=== PATIENT | female | born 1955 | race Caucasian/White ===

== ENCOUNTER 2017-09-15 08:50 | Emergency (ER) | payer MEDICARE, BC ==
[2017-09-15] MEDS ORDERED: HYDROMORPHONE HCL 2 MG/ML VIAL IM ONE (10:24)
[2017-09-15] MEDS ORDERED: PROMETHAZINE HCL 25 MG/ML VIAL IM ONE (10:24)
--- NOTE | 2017-09-15 10:52 | Emergency Department Record ---
History of Present Illness - General Chief Complaint: Back Pain/Injury Stated Complaint: SHOULDER/BACK PAIN Time Seen by Provider: 09/15/17 10:06 Source: Patient Mode of Arrival: Ambulatory Limitations: No limitations - History of Present Illness Initial Comments: pt injured her r shoulder yesterday. she cant raise her arm. she lifts her grandson a lot. Complaint: Other (shoulder pain) Onset/Timin -: Days(s) Similar Symptoms Previously: No Place: Home Radiation: None Severity: Severe Severity scale (1-10): 10 Quality: Sharp Consistency: Constant Improves With: Immobilization Worsens With: Movement Context: Unknown Associated Symptoms: Denies other symptoms - Related Data Home Medications Medication Instructions Recorded Confirmed Last Taken Duloxetine HCl [Cymbalta] 60 mg PO DAILY 09/15/17 09/15/17 Unknown Folic Acid 1 mg PO DAILY 09/15/17 09/15/17 Unknown Gabapentin [Neurontin] 600 mg PO BID 09/15/17 09/15/17 Unknown Previous Rx's Medication Instructions Recorded Hydrocodone/Acetaminophen [[place] 1 each PO Q6HR #7 tablet 09/15/17 5-325 Tablet] Allergies Allergy/AdvReac Type Severity Reaction Status Date / Time celecoxib [From Celebrex] Allergy Mild hives Unverified 01/23/17 09:55 Travel Screening - Travel/Exposure Within Last 30 Days Have you traveled within the last 30 days?: No Review of Systems Reviewed: No additional complaints except as noted below Constitutional: Reports: As per HPI. Denies: Chills, Fever, Malaise, Night sweats, Weakness, Weight change Eyes: Reports: As per HPI. Denies: Eye discharge, Eye pain, Photophobia, Vision change ENT: Reports: As per HPI. Denies: Congestion, Dental pain, Ear pain, Epistaxis , Hearing loss, Throat pain Respiratory: Reports: As per HPI. Denies: Cough, Dyspnea, Hemoptysis, Stridor, Wheezes Cardiovascular: Reports: As per HPI. Denies: Arrhythmia, Chest pain, Dyspnea on exertion, Edema, Murmurs, Orthopnea, Palpitations, Paroxysmal nocturnal dyspnea, Rheumatic Fever, Syncope Endocrine: Reports: As per HPI. Denies: Fatigue, Heat or cold intolerance, Polydipsia, Polyuria Gastrointestinal: Reports: As per HPI. Denies: Abdominal pain, Constipation, Diarrhea, Hematemesis, Hematochezia, Melena, Nausea, Vomiting Genitourinary: Reports: As per HPI. Denies: Abnormal menses, Discharge, Dyspareunia, Dysuria, Frequency, Hematuria, Incontinence, Retention, Urgency Musculoskeletal: Reports: As per HPI. Denies: Arthralgia, Back pain, Gout, Joint swelling, Myalgia, Neck pain Skin: Reports: As per HPI. Denies: Bruising, Change in color, Change in hair/ nails, Lesions, Pruritus, Rash Neurological: Reports: As per HPI. Denies: Abnormal gait, Confusion, Headache, Numbness, Paresthesias, Seizure, Tingling, Tremors, Vertigo, Weakness Psychiatric: Reports: As per HPI. Denies: Anxiety, Auditory hallucinations, Depression, Homicidal thoughts, Suicidal thoughts, Visual hallucinations Hematological/Lymphatic: Reports: As per HPI. Denies: Anemia, Blood Clots, Easy bleeding, Easy bruising, Swollen glands Past Medical History - SOCIAL HISTORY Smoking Status: Light tobacco smoker (<10/day) Alcohol Use: None Drug Use: None - RESPIRATORY Hx Respiratory Disorders: No - CARDIOVASCULAR Hx Cardio Disorders: No - NEURO Hx Neuro Disorders: No - GI Hx GI Disorders: No - Hx Genitourinary Disorders: No - ENDOCRINE Hx Endocrine Disorders: No - MUSCULOSKELETAL Hx Musculoskeletal Disorders: Yes Hx Arthritis: Yes (RA) - PSYCH Hx Psych Problems: No - HEMATOLOGY/ONCOLOGY Hx Hematology/Oncology Disorders: No Family Medical History Any Significant Family History?: No Physical Exam - General General Appearance: Alert, Oriented x3, Cooperative, Mild distress - Head Head exam: Normal inspection - Eye Eye exam: Normal appearance, PERRL, EOMI Pupils: Normal accommodation - ENT ENT exam: Normal exam, Mucous membranes moist, Normal external ear exam, Normal orophraynx Ear exam: Normal external inspection. negative: External canal tenderness Nasal Exam: Normal inspection. negative: Discharge, Sinus tenderness Mouth exam: Normal external inspection, Tongue normal Teeth exam: Normal inspection. negative: Dental caries Throat exam: Normal inspection. negative: Tonsillar erythema, Tonsillar exudate - Neck Neck exam: Normal inspection, Full ROM. negative: Tenderness - Respiratory Respiratory exam: Normal lung sounds bilaterally. negative: Respiratory distress - Cardiovascular Cardiovascular Exam: Regular rate, Normal rhythm, Normal heart sounds - GI/Abdominal GI/Abdominal exam: Soft, Normal bowel sounds. negative: Tenderness - Rectal Rectal exam: Deferred - exam: Deferred - Extremities Extremities exam: Normal capillary refill, Tenderness. negative: Full ROM Image of Full Body: 1 - tender - Back Back exam: Reports: Normal inspection, Full ROM. Denies: Muscle spasm, Rash noted, Tenderness - Neurological Neurological exam: Alert, Normal gait, Oriented X3, Reflexes normal - Psychiatric Psychiatric exam: Normal affect, Normal mood - Skin Skin exam: Dry, Intact, Normal color, Warm Course Vital Signs 09/15/17 09:00 Temperature 98.3 F Pulse Rate 89 Respiratory 16 Rate Blood Pressure 120/88 Pulse Ox 98 Disposition Disposition: Discharge Clinical Impression: Biceps tendonitis Qualifiers: Laterality: right Qualified Code(s): M75.21 - Bicipital tendinitis, right shoulder Disposition: Home, Self-Care Condition: (1) Good Instructions: Tendinitis (ED) Additional Instructions: follow up with family doctor. ice to shoulder. return sooner if worse Prescriptions: Hydrocodone/Acetaminophen [[place] 5-325 Tablet] 1 each PO Q6HR #7 tablet Quality - Quality Measures Quality Measures: N/A - Blood Pressure Screening Does Patient Have Any of the Following: No Blood Pressure Classification: Pre-Hypertensive BP Reading Systolic Measurement: 120 Diastolic Measurement: 88 Screening for High Blood Pressure: < Pre-Hypertensive BP, F/U Documented > [ [id number]] Pre-Hypertensive Follow-up Interventions: Follow-up with rescreen every year.
--- NOTE | 2017-09-16 10:05 | RADIOLOGY REPORT ---
DATE: 09/15/2017 at 10:34 a.m. EXAM: RIGHT SHOULDER. HISTORY: Right shoulder pain starting yesterday. No injury. TECHNIQUE: Three views of the right shoulder. COMPARISON: None. FINDINGS: Mild spurring at the acromioclavicular joint. The shoulder appears otherwise negative. No fracture, dislocation, or destructive lesion seen. No periarticular soft tissue calcification evident. IMPRESSION: 1. MILD SPURRING AT THE ACROMIOCLAVICULAR JOINT. 2. THE GLENOHUMERAL JOINT APPEARS NEGATIVE. JOB NUMBER: [id number] MTDD
== END 2017-09-15 11:31 | disposition home or self-care (01) ==
LOC: ER 08:50
DX: M75.21 Bicipital tendinitis, right shoulder (principal); F17.210 Nicotine dependence, cigarettes, uncomplicated
CPT/HCPCS: 96372; 99283; 99284; J2550

== ENCOUNTER 2019-02-24 15:20 | Observation (INO) | payer MEDICARE, BC ==
[2019-02-24] MEDS ORDERED: ALBUTEROL SULFATE (0.083%) 2.5 MG/3 ML NEB INH ONE (15:42)
[2019-02-24] MEDS ORDERED: 0.9 % SODIUM CHLORIDE 1,000 ML BAG IV ONE ×2 (15:42→16:29)
--- NOTE | 2019-02-24 15:50 | Emergency Department Record ---
History of Present Illness - General Chief Complaint: Shortness of breath Stated Complaint: SHORT OF BREATH,SINUS CONGESTION Time Seen by Provider: 02/24/19 15:34 Source: Patient Mode of Arrival: Ambulatory Limitations: No limitations - History of Present Illness Initial Comments: The patient is here due to a 3 day hx of cough, sinus pressure and congestion. She also feels weak and dizzy and has had a facial rash for 2 days. The patient denies any chest pain, sputum production, pleuritic pain, SERRATO, or vomiting. MD Complaint: Cough, Shortness of breath Onset/Timin -: Days(s) - Related Data Home Medications Medication Instructions Recorded Confirmed Last Taken Eszopiclone [Lunesta] 3 mg PO QHS 02/24/19 02/24/19 Unknown Methotrexate Sodium [Trexall] 20 mg PO WEEKLY 02/24/19 02/24/19 Unknown Prednisone 15 mg PO DAILY 02/24/19 02/24/19 Unknown Allergies Allergy/AdvReac Type Severity Reaction Status Date / Time celecoxib [From Celebrex] Allergy Mild hives Verified 02/24/19 15:33 Travel Screening - Travel/Exposure Within Last 30 Days Have you traveled within the last 30 days?: No - Travel/Exposure Within Last Year Have you traveled outside the [place] in the last year?: No - Additonal Travel Details Have you been exposed to anyone with a communicable illness?: No Review of Systems Constitutional: Reports: Malaise. Denies: Chills, Fever Eyes: Denies: Eye discharge ENT: Reports: Congestion Respiratory: Reports: Cough, Dyspnea Cardiovascular: Denies: Arrhythmia, Chest pain Endocrine: Reports: Fatigue Gastrointestinal: Denies: Nausea Genitourinary: Denies: Dysuria Musculoskeletal: Denies: Arthralgia Skin: Denies: Bruising Past Medical History - SOCIAL HISTORY Smoking Status: Light tobacco smoker (<10/day) Alcohol Use: Occasional Drug Use: None - RESPIRATORY Hx Respiratory Disorders: Yes Hx Bronchitis: Yes - CARDIOVASCULAR Hx Cardio Disorders: No - NEURO Hx Neuro Disorders: No - GI Hx GI Disorders: No - Hx Genitourinary Disorders: No - ENDOCRINE Hx Endocrine Disorders: Yes Hx Thyroid Disease: Yes - MUSCULOSKELETAL Hx Musculoskeletal Disorders: Yes Hx Arthritis: Yes (RA) - PSYCH Hx Psych Problems: No - HEMATOLOGY/ONCOLOGY Hx Hematology/Oncology Disorders: No Family Medical History Any Significant Family History?: No Physical Exam - General General Appearance: Alert, Oriented x3, Cooperative, No acute distress - Head Head exam: Atraumatic, Normocephalic, Normal inspection - Eye Eye exam: Normal appearance, PERRL - ENT Throat exam: Tonsillar erythema. negative: Normal inspection, Tonsillomegaly - Neck Neck exam: Normal inspection, Full ROM. negative: Meningismus (The neck is very supple. ), Tenderness - Respiratory Respiratory exam: Normal lung sounds bilaterally. negative: Decreased breath sounds, Respiratory distress, Rhonchi, Stridor, Wheezes - Cardiovascular Cardiovascular Exam: Regular rate, Normal rhythm, Normal heart sounds - GI/Abdominal GI/Abdominal exam: Soft, Normal bowel sounds. negative: Tenderness - Extremities Extremities exam: Normal inspection, Full ROM, Normal capillary refill. negative: Tenderness - Back Back exam: Denies: Normal inspection - Neurological Neurological exam: Alert, Normal gait, Oriented X3, Reflexes normal. negative: Abnormal gait, Altered, Motor sensory deficit - Psychiatric Psychiatric exam: negative: Anxious Course Vital Signs 02/24/19 15:26 Temperature 98.0 F Pulse Rate 108 H Respiratory 16 Rate Blood Pressure 147/93 Pulse Ox 94 L - Reevaluation(s) Reevaluation #1: The patient is doing better at this time and is ambulating to the bathroom normally. She still feels quite weak and dizzy. I do feel her issue at this time is a RA flare up. After I discussed that with the patient she did inform me she saw her [employer] Instructor 3 days ago who felt the same and did give her an extra dose of steroids and started her on Enbrel. The patient did not remember that initially. I did recommend hospital admission due to the dehydration and weakness and the patient did agree to the plan. I then did discuss the case with Dr. Wang and he does accept the patient for admission. 02/24/19 17:47 Reevaluation #2: The patient is doing well at this time. She is feeling better and her facial rash has resolved. The patient does have a mild SERRATO but no visual changes, neck pain or vomiting. We will treat with Toradol and obtain a urine test on the floor. 02/24/19 18:27 Medical Decision Making - Data Complexity MDM Data: Labs Ordered and/or Reviewed, X-Ray Ordered and/or Reviewed, EKG Ordered and/or Reviewed - Lab Data Result diagrams: 02/24/19 15:41 02/24/19 15:50 - EKG Data -: EKG Interpreted by Me EKG: No Acute Changes, Normal EKG - Radiology Data Radiology results: Report reviewed (CXR: Neg for acute disease. Increased interstitial markings prob chronic.) Disposition Disposition: Admit Clinical Impression: Rheumatoid arthritis flare Disposition: Still a Patient at [facility] Decision to Admit: Admit from ER Decision to Admit Date: 02/24/19 Decision to Admit Time: 17:50 Accepting Physician: Kathleen Time Discussed w/Accepting Physician: 17:50 Condition: (2) Stable Time of Disposition: 17:50 Quality - Quality Measures Quality Measures: N/A - Blood Pressure Screening View Details: Yes Does Patient Have Any of the Following: Active Dx of HTN Blood Pressure Classification: Hypertensive Reading Systolic Measurement: 146 Diastolic Measurement: 95 Screening for High Blood Pressure: Patient Exclusion, Hx of HTN [G9744]
[2019-02-24] MEDS ORDERED: ACETAMINOPHEN 325 MG TAB PO ONE (15:54)
[2019-02-24 16:02] LABS: ABSOLUTE NEUTROPHIL COUNT 11.79; BASO % 0.2 % (0-6); HEMATOCRIT 38.6 % (35.0-47.0); HEMOGLOBIN 13.1 gm/dl (11.6-16.0); LYMPH % 6.2 % (16-45); MEAN CELL VOLUME 100.3 fl (81-97); MEAN CORPUSCULAR HGB CONC 33.9 g/dl (32-36); MEAN PLATELET VOLUME 8.8 fl (7.4-10.4); MONO % 5.2 % (0-9); PLATELET COUNT 359 K/uL (130-400); RED BLOOD COUNT 3.85 M/uL (3.80-5.40); RED CELL DISTRIBUTION WIDTH 12.9 % (11.5-14.5); WHITE BLOOD COUNT W/O DIFF 13.3 K/uL (4.2-12.2)
[2019-02-24 16:13] LABS: BLOOD UREA NITROGEN 12 mg/dL (8-23); CREATININE 0.7 mg/dL (0.5-0.9); EST GLOMERULAR FILTRATION RATE > 60 mL/min; TOTAL PROTEIN 7.6 g/dL (6.6-8.7)
[2019-02-24 16:14] LABS: INR 0.9; PARTIAL THROMBOPLASTIN TIME 26.3 SECONDS (24.5-39.1); PROTHROMBIN TIME (PATIENT) 9.3 SECONDS (9.5-12.1)
[2019-02-24 16:15] LABS: GLUCOSE,RANDOM 131 mg/dL (74-109)
[2019-02-24 16:18] LABS: ALB/GLOB RATIO 1.4 (1.1-1.8); ALBUMIN 4.4 g/dL (4.0-5.0); ALKALINE PHOSPHATASE 93 U/L (35-104); ALT/SGPT 22 U/L (<33); AST/SGOT 21 U/L (10.0-35.0)
[2019-02-24 16:21] LABS: NTpro B-NATRIURETIC PEPTIDE 48.94 pg/mL (<125)
[2019-02-24 16:29] LABS: THYROID STIMULATING HORMONE 5.59 uIU/mL (0.270-4.20)
--- NOTE | 2019-02-24 16:34 | RADIOLOGY REPORT ---
EXAMINATION: Two View Chest Radiographs EXAM DATE: 02/24/2019 4:13 PM TECHNIQUE: Frontal and lateral views INDICATION: CASEY COMPARISON: None ENCOUNTER: Not applicable FINDINGS: Mild diffuse interstitial prominence of the lungs bilaterally. No focal lung consolidations, effusion s, pneumothoraces evident. Heart size within normal limits. There is atherosclerosis of a tortuous th oracic aorta. Hilar and mediastinal borders otherwise grossly unremarkable. Bones appear osteopenic. No rib lesions discretely imaged. IMPRESSION: Subtle interstitial markings bilaterally may indicate sequela of interstitial disease such as fibrosi s or inhalational disease. Acute disease, including atypical infection not excluded. This could be co rrelated clinically, and with pulmonary function tests, high-resolution CT examination of the chest i f clinically indicated. Dictated by: Rivka Anand MD on 02/24/2019 4:28 PM. .
[2019-02-24] MEDS ORDERED: POTASSIUM CHLORIDE 20 MEQ TABLET PO ONE (16:39)
[2019-02-24] MEDS ORDERED: METHYLPREDNISOLONE PF 125MG/VIAL IVP ONE (17:16)
[2019-02-24] MEDS ORDERED: KETOROLAC 30 MG/ML VIAL IVP ONE (18:02)
[2019-02-24] MEDS ORDERED: ALBUTEROL HFA 8 GM INHALER INH SCH (18:27)
[2019-02-24] MEDS ORDERED: ACETAMINOPHEN 325 MG TAB PO PRN (18:27)
[2019-02-24] MEDS ORDERED: LEVOTHYROXINE SODIUM 125 MCG TABLET PO SCH (18:27)
[2019-02-24] MEDS ORDERED: 0.9 % SODIUM CHLORIDE 1000ML 1,000 ML IV ONE (18:27)
[2019-02-24] MEDS ORDERED: ZOLPIDEM TARTRATE 5 MG TABLET PO PRN (18:43)
[2019-02-24] MEDS ORDERED: FLU VAC QS 2019-20 (INPT, 6MO+) 60MCG/0.5ML IM ONE (18:56)
[2019-02-24] MEDS: GABAPENTIN 300 MG CAPSULE PO SCH (22:49)
[2019-02-24] MEDS: CHLORZOXAZONE 500 MG TABLET PO SCH (22:49)
[2019-02-24] MEDS: POTASSIUM CHLORIDE 20 MEQ TABLET PO SCH (22:56)
[2019-02-25 03:40] LABS: URINE APPEARANCE CLEAR; URINE BILIRUBIN NEGATIVE (NEGATIVE); URINE BLOOD NEGATIVE (NEGATIVE); URINE COLOR YELLOW; URINE GLUCOSE (UA) NEGATIVE (NEGATIVE); URINE KETONE NEGATIVE (NEGATIVE); URINE LEUKOCYTE ESTERASE NEGATIVE (NEGATIVE); URINE NITRITE NEGATIVE (NEGATIVE); URINE PROTEIN NEGATIVE (NEGATIVE); URINE UROBILINOGEN 0.2 E.U./dL (0.20 - 1.00)
[2019-02-25 06:38] LABS: HEMOGLOBIN 12.6 gm/dl (11.6-16.0); MEAN CELL VOLUME 103.4 fl (81-97); MEAN CORPUSCULAR HEMOGLOBIN 33.4 pg (27-33); MEAN CORPUSCULAR HGB CONC 32.3 g/dl (32-36); MEAN PLATELET VOLUME 8.7 fl (7.4-10.4); PLATELET COUNT 349 K/uL (130-400); RED BLOOD COUNT 3.77 M/uL (3.80-5.40); RED CELL DISTRIBUTION WIDTH 12.9 % (11.5-14.5); WHITE BLOOD COUNT W/O DIFF 7.1 K/uL (4.2-12.2)
[2019-02-25 07:00] LABS: BLOOD UREA NITROGEN 15 mg/dL (8-23); C-REACTIVE PROTEIN 4.59 mg/dL (<0.5); CREATININE 0.7 mg/dL (0.5-0.9); EST GLOMERULAR FILTRATION RATE > 60 mL/min; GLUCOSE,RANDOM 150 mg/dL (74-109)
--- NOTE | 2019-02-25 07:14 | History & Physical ---
History of Present Illness - Date of Service Date of Service for History & Physical: 02/25/19 - History of Present Illness Admitting Diagnosis: 1. Acute Rheumatoid Arthritis Flare. History of Present Illness: Mrs. Castellanos is a 64 y/o female here with complaint of feeling run down for the past several days. She says that she has Rheumatoid arthritis and was recently changed from Humira to Enbrel by her Rib Cloth Knitter on of last week. She says that she just hasn't been feeling herself but cannot pinpoint any specific reason for it. She has had a headache but denies fever, nausea, vomiting, chest pain or shortness of breath. The patient has not had any recent travel nor sick contacts. She is also on Methotrexate and oral Predisone daily which she says that she has been taking for a long time. She also has hypothyrodism and is on Levothyroxine. In conversation with the patient's Rib Cloth Knitter this morning the patient was recently started on Enbrel and was also administered steroid injection on February 21. The patient's labs on admission are not suggestive of any acute systemic infection. All labs are within normal limits with exception of the patient's ESR which is 70 on admission. CXR showed diffuse interstitial markings which are suggestive of fibrosis but no consolidations or acute findings are noted. The patient is admitted to the general medical service for IV solumedrol and fluids. PCP: Dr. Olvin Jaime Rib Cloth Knitter: Dr. Rabia Valenzuela Travel Screening - Travel/Exposure Within Last 30 Days Have you traveled within the last 30 days?: No - Travel/Exposure Within Last Year Have you traveled outside the [place] in the last year?: No - Additonal Travel Details Have you been exposed to anyone with a communicable illness?: No - Travel Symptoms Symptom Screening: Fever (Subjective), Headache, Joint & Muscle Aches, Weakness, Fatigue, Diarrhea, Vomiting Review of Systems Constitutional: Reports: Malaise. Denies: Chills, Fever Eyes: Denies: Eye discharge ENT: Reports: Congestion Respiratory: Reports: Cough, Dyspnea Cardiovascular: Denies: Arrhythmia, Chest pain Endocrine: Reports: Fatigue Gastrointestinal: Denies: Nausea Genitourinary: Denies: Dysuria Musculoskeletal: Denies: Arthralgia Skin: Denies: Bruising Past Medical History - SOCIAL HISTORY Smoking Status: Light tobacco smoker (<10/day) Alcohol Use: Occasional Drug Use: None - RESPIRATORY Hx Respiratory Disorders: Yes Hx Bronchitis: Yes - CARDIOVASCULAR Hx Cardio Disorders: No - NEURO Hx Neuro Disorders: No - GI Hx GI Disorders: No - Hx Genitourinary Disorders: No - ENDOCRINE Hx Endocrine Disorders: Yes Hx Thyroid Disease: Yes - MUSCULOSKELETAL Hx Musculoskeletal Disorders: Yes Hx Arthritis: Yes (RA) - PSYCH Hx Psych Problems: No - HEMATOLOGY/ONCOLOGY Hx Hematology/Oncology Disorders: No Family Medical History Any Significant Family History?: No H&P Meds/Allergies - Allergies Allergies: Allergies Allergy/AdvReac Type Severity Reaction Status Date / Time celecoxib [From Celebrex] Allergy Mild hives Verified 02/24/19 15:33 - Home Medications Home Medications Medication Instructions Recorded Confirmed Last Taken Eszopiclone [Lunesta] 3 mg PO QHS 02/24/19 02/24/19 Unknown Methotrexate Sodium [Trexall] 20 mg PO WEEKLY 02/24/19 02/24/19 Unknown Prednisone 15 mg PO DAILY 02/24/19 02/24/19 Unknown Folic Acid 0.4 mg PO QID 02/25/19 02/25/19 Unknown - Active Medications Active Medications: Current Medications Acetaminophen (Tylenol 325mg) 650 mg PO Q6H PRN PRN Reason: PAIN - MILD(1-4)/FEVER Last Admin: 02/24/19 22:53 Dose: 650 mg Documented by: Albuterol Sulfate (Ventolin Hfa) 1 - 2 puff INH Q4H [facility] Chlorzoxazone (Parafon Forte) 500 mg PO TID [facility] Last Admin: 02/24/19 22:49 Dose: 500 mg Documented by: Duloxetine HCl (Cymbalta) 30 mg PO DAILY [facility] Gabapentin (Neurontin) 600 mg PO TID [facility] Last Admin: 02/24/19 22:49 Dose: 600 mg Documented by: Levothyroxine Sodium (Synthroid) 150 mcg PO QD [facility] Last Admin: 02/24/19 19:34 Dose: Not Given Documented by: Methylprednisolone Sodium Succinate (Solu-Medrol) 60 mg IVP DAILY [facility] Non-Formulary Medication (Methotrexate Sodium [Trexall]) 20 mg PO WEEKLY [facility] Potassium Chloride (Klor-Con) 20 meq PO BID [facility] Last Admin: 02/24/19 22:56 Dose: 20 meq Documented by: Zolpidem Tartrate (Ambien) 5 mg PO QHS PRN PRN Reason: INSOMNIA Last Admin: 02/24/19 22:50 Dose: 5 mg Documented by: Physical Exam - Vital Signs Vital Signs: Vital Signs - Last 24 Hrs Temp Pulse Pulse Resp BP BP BP 02/25/19 04:00 97.9 F 83 18 153/94 02/24/19 23:52 97.9 F 81 18 149/97 02/24/19 21:00 16 02/24/19 20:27 97.6 F 89 18 155/95 02/24/19 18:45 87 16 02/24/19 18:27 97.8 F 87 16 149/94 160/98 02/24/19 18:23 95 H 16 146/95 02/24/19 17:25 96 H 16 146/85 02/24/19 16:45 85 18 02/24/19 16:37 90 16 145/88 02/24/19 15:26 98.0 F 108 H 16 147/93 Pulse Ox 02/25/19 04:00 98 02/24/19 23:52 95 02/24/19 21:00 02/24/19 20:27 98 02/24/19 18:45 02/24/19 18:27 99 02/24/19 18:23 100 02/24/19 17:25 100 02/24/19 16:45 99 02/24/19 16:37 99 02/24/19 15:26 94 L - General General Appearance: Alert, Oriented x3, Cooperative, No acute distress Limitations: No limitations - Head Head exam: Atraumatic, Normocephalic, Normal inspection - Eye Eye exam: Normal appearance, PERRL - ENT Throat exam: Tonsillar erythema. negative: Normal inspection, Tonsillomegaly - Neck Neck exam: Normal inspection, Full ROM. negative: Meningismus (The neck is very supple. ), Tenderness - Respiratory Respiratory exam: Normal lung sounds bilaterally. negative: Decreased breath sounds, Respiratory distress, Rhonchi, Stridor, Wheezes - Cardiovascular Cardiovascular Exam: Regular rate, Normal rhythm, Normal heart sounds - GI/Abdominal GI/Abdominal exam: Soft, Normal bowel sounds. negative: Tenderness - Extremities Extremities exam: Normal inspection, Full ROM, Normal capillary refill. negativ e: Tenderness - Back Back exam: Denies: Normal inspection - Neurological Neurological exam: Alert, Normal gait, Oriented X3, Reflexes normal. negative: Abnormal gait, Altered, Motor sensory deficit - Psychiatric Psychiatric exam: negative: Anxious Results - Labs Result Diagrams: 02/25/19 06:26 02/25/19 06:26 Labs Last 24 Hours: Laboratory Results - last 24 hr 02/24/19 02/24/19 02/24/19 03:15 15:41 15:50 WBC 13.3 H RBC 3.85 Hgb 13.1 Hct 38.6 MCV 100.3 H MCH 34.0 H MCHC 33.9 RDW 12.9 Plt Count 359 MPV 8.8 Neutrophils % 86.0 H Band Neutrophils % 2.0 Lymphocytes % 6.2 L Monocytes % 5.2 Eosinophils % 0.0 Basophils % 0.2 Absolute Neutrophils 11.79 Lymphocytes 7.0 L Monocytes 5.0 ESR Eosinophil Count 0.0 PT 9.3 L INR 0.9 APTT 26.3 Sodium Potassium Chloride Carbon Dioxide Anion Gap BUN Creatinine Estimated GFR Random Glucose Calcium Total Bilirubin AST ALT Alkaline Phosphatase Troponin T C-Reactive Protein NT-Pro-B Natriuret Pep Total Protein Albumin Globulin Albumin/Globulin Ratio TSH Urine Color Yellow Urine Appearance Clear Urine pH 7.5 Ur Specific Aubrey 1.010 Urine Protein Negative Urine Glucose (UA) Negative Urine Ketones Negative Urine Blood Negative Urine Nitrite Negative Urine Bilirubin Negative Urine Urobilinogen 0.2 Ur Leukocyte Esterase Negative 02/24/19 02/24/19 02/24/19 15:50 15:50 15:50 WBC RBC Hgb Hct MCV MCH MCHC RDW Plt Count MPV Neutrophils % Band Neutrophils % Lymphocytes % Monocytes % Eosinophils % Basophils % Absolute Neutrophils Lymphocytes Monocytes ESR 70 H Eosinophil Count PT INR APTT Sodium 138 Potassium 2.9 L* Chloride 101 Carbon Dioxide 16.0 L Anion Gap 21.0 H BUN 12 Creatinine 0.7 Estimated GFR > 60 Random Glucose 131 H Calcium 10.0 Total Bilirubin 0.20 AST 21 ALT 22 Alkaline Phosphatase 93 Troponin T < 0.010 C-Reactive Protein 5.53 H NT-Pro-B Natriuret Pep 48.94 Total Protein 7.6 Albumin 4.4 Globulin 3.2 Albumin/Globulin Ratio 1.4 TSH 5.59 H Urine Color Urine Appearance Urine pH Ur Specific Aubrey Urine Protein Urine Glucose (UA) Urine Ketones Urine Blood Urine Nitrite Urine Bilirubin Urine Urobilinogen Ur Leukocyte Esterase 02/25/19 02/25/19 06:26 06:26 WBC 7.1 RBC 3.77 L Hgb 12.6 Hct 39.0 MCV 103.4 H MCH 33.4 H MCHC 32.3 RDW 12.9 Plt Count 349 MPV 8.7 Neutrophils % Band Neutrophils % Lymphocytes % Monocytes % Eosinophils % Not Reportable Basophils % Not Reportable Absolute Neutrophils TNP Lymphocytes Monocytes ESR Eosinophil Count PT INR APTT Sodium 139 Potassium 4.6 H Chloride 108 H Carbon Dioxide 19.0 L Anion Gap 12.0 BUN 15 Creatinine 0.7 Estimated GFR > 60 Random Glucose 150 H Calcium 9.4 Total Bilirubin AST ALT Alkaline Phosphatase Troponin T C-Reactive Protein 4.59 H NT-Pro-B Natriuret Pep Total Protein Albumin Globulin Albumin/Globulin Ratio TSH Urine Color Urine Appearance Urine pH Ur Specific Aubrey Urine Protein Urine Glucose (UA) Urine Ketones Urine Blood Urine Nitrite Urine Bilirubin Urine Urobilinogen Ur Leukocyte Esterase VTE H&P Assessment - Risk for VTE Risk for VTE: Yes Risk Level: High Risk Assessment Date: 02/25/19 Risk Assessment Time: 10:39 VTE Orders Placed or Will Be Placed: Yes Plan - Detailed Diagnosis and Plan (1) Rheumatoid arthritis flare Current Visit: Yes Status: Acute Base Code: M06.9 - RHEUMATOID ARTHRITIS, UNSPECIFIED Comment: 02/25/19: - Hx of RA with recent change from Humira to Enbrel. Next dose of Enbrel in 2 days per Rheumatology. - IVF fluids @ 100mL/hr and IV Solumedrol 125mg once in ED. - No indication of systemic infection or metabolic disturbance. CXR, UA negative for infection. - Discussed with Dr. Valenzuela (Rheumatology) and will increase Prednisone to 25mg daily for 1 week until seen in office. Continue with Methotrexate as prescribed. (2) ESR raised Current Visit: Yes Status: Acute Base Code: R70.0 - ELEVATED ERYTHROCYTE SEDIMENTATION RATE Comment: 02/25/19: - 70 --> 67 (3) Full code status Current Visit: Yes Status: Acute Base Code: Z78.9 - OTHER SPECIFIED HEALTH STATUS Comment: 02/25/19: - Full code status on this admission. (4) DVT prophylaxis Current Visit: Yes Status: Acute Base Code: Z29.9 - ENCOUNTER FOR PROPHYLAC TIC MEASURES, UNSPECIFIED
[2019-02-25 07:23] LABS: ERYTHROCYTE SEDIMENTATION RATE 67 mm/hr (0-30)
[2019-02-25] MEDS: POTASSIUM CHLORIDE 20 MEQ TABLET PO SCH (09:34)
[2019-02-25] MEDS: GABAPENTIN 300 MG CAPSULE PO SCH (09:34)
[2019-02-25] MEDS: CHLORZOXAZONE 500 MG TABLET PO SCH (09:35)
[2019-02-25] MEDS ORDERED: METHOTREXATE SODIUM 20 MG PO SCH (10:00)
[2019-02-25] MEDS ORDERED: METHYLPREDNISOLONE PF 125MG/VIAL IVP SCH (10:00)
[2019-02-25] MEDS ORDERED: DULOXETINE HCL 30 MG CAPSULE.DR PO SCH (10:00)
[2019-02-25] MEDS ORDERED: LEVOTHYROXINE SODIUM 125 MCG TABLET PO SCH (10:30)
--- NOTE | 2019-02-25 11:24 | Discharge Summary ---
Providers Discharge Summary Date: 02/25/19 Date of admission: 02/24/19 18:24 Attending physician: LIYAH PIKE Primary care physician: REINALDO BAUMANN III, D.O. Physical Exam - Vital Signs Vital Signs: Vital Signs - Last 24 Hrs Temp Pulse Pulse Resp BP BP BP 02/25/19 07:40 98.1 F 94 H 16 150/90 02/25/19 04:00 97.9 F 83 18 153/94 02/24/19 23:52 97.9 F 81 18 149/97 02/24/19 21:00 16 02/24/19 20:27 97.6 F 89 18 155/95 02/24/19 18:45 87 16 02/24/19 18:27 97.8 F 87 16 149/94 160/98 02/24/19 18:23 95 H 16 146/95 02/24/19 17:25 96 H 16 146/85 02/24/19 16:45 85 18 02/24/19 16:37 90 16 145/88 02/24/19 15:26 98.0 F 108 H 16 147/93 Pulse Ox 02/25/19 07:40 98 02/25/19 04:00 98 02/24/19 23:52 95 02/24/19 21:00 02/24/19 20:27 98 02/24/19 18:45 02/24/19 18:27 99 02/24/19 18:23 100 02/24/19 17:25 100 02/24/19 16:45 99 02/24/19 16:37 99 02/24/19 15:26 94 L - General General Appearance: Alert, Oriented x3, Cooperative, No acute distress Limitations: No limitations - Head Head exam: Atraumatic, Normocephalic, Normal inspection - Eye Eye exam: Normal appearance, PERRL - ENT Throat exam: Tonsillar erythema. negative: Normal inspection, Tonsillomegaly - Neck Neck exam: Normal inspection, Full ROM. negative: Meningismus (The neck is very supple. ), Tenderness - Respiratory Respiratory exam: Normal lung sounds bilaterally. negative: Decreased breath sounds, Respiratory distress, Rhonchi, Stridor, Wheezes - Cardiovascular Cardiovascular Exam: Regular rate, Normal rhythm, Normal heart sounds - GI/Abdominal GI/Abdominal exam: Soft, Normal bowel sounds. negative: Tenderness - Extremities Extremities exam: Normal inspection, Full ROM, Normal capillary refill. negative: Tenderness - Back Back exam: Denies: Normal inspection - Neurological Neurological exam: Alert, Normal gait, Oriented X3, Reflexes normal. negative: Abnormal gait, Altered, Motor sensory deficit - Psychiatric Psychiatric exam: negative: Anxious Hospitalization - Hospitalization Admission Diagnosis: 1. Acute Rheumatoid Arthritis Flare. - Problem List/Discharge Diagnosis (1) Rheumatoid arthritis flare Current Visit: Yes Status: Acute Base Code: M06.9 - RHEUMATOID ARTHRITIS, UNSPECIFIED Comment: 02/25/19: - Hx of RA with recent change from Humira to Enbrel. Next dose of Enbrel in 2 days per Rheumatology. - IVF fluids @ 100mL/hr and IV Solumedrol 125mg once in ED. - No indication of systemic infection or metabolic disturbance. CXR, UA negative for infection. - Discussed with Dr. Valenzuela (Rheumatology) and will increase Prednisone to 25mg daily for 1 week until seen in office. Continue with Methotrexate as prescribed. (2) ESR raised Current Visit: Yes Status: Acute Base Code: R70.0 - ELEVATED ERYTHROCYTE SEDIMENTATION RATE Comment: 02/25/19: - 70 --> 67 (3) Full code status Current Visit: Yes Status: Acute Base Code: Z78.9 - OTHER SPECIFIED HEALTH STATUS Comment: 02/25/19: - Full code status on this admission. (4) DVT prophylaxis Current Visit: Yes Status: Acute Base Code: Z29.9 - ENCOUNTER FOR PROPHYLACTIC MEASURES, UNSPECIFIED - Hospitalization Course Hospital Course: Mrs. Castellanos is a 64 y/o female here with complaint of feeling run down for the past several days. She says that she has Rheumatoid arthritis and was recently changed from Humira to Enbrel by her Die Casting Machine Operator on of last week. She says that she just hasn't been feeling herself but cannot pinpoint any specific reason for it. She has had a headache but denies fever, nausea, vomiting, chest pain or shortness of breath. The patient has not had any recent travel nor sick contacts. She is also on Methotrexate and oral Predisone daily which she says that she has been taking for a long time. She also has hypothyrodism and is on Levothyroxine. In conversation with the patient's Die Casting Machine Operator this morning the patient was recently started on Enbrel and was also administered steroid injection on February 21. The patient's labs on admission are not suggestive of any acute systemic infection. All labs are within normal limits with exception of the patient's ESR which is 70 on admission. CXR showed diffuse interstitial markings which are suggestive of fibrosis but no consolidations or acute findings are noted. The patient is admitted to the general medical service for IV solumedrol and fluids. PCP: Dr. Reinaldo Baumann Die Casting Machine Operator: Dr. Rabia Valenzuela Procedures: Imaging and X-Rays 02/24/19 15:41 CHEST 2 VIEWS [RAD] Stat Cardiology Procedures 02/24/19 15:41 EKG NOW Abnormal Labs: Abnormal Lab Results 02/24/19 02/24/19 02/24/19 Range/Units 15:41 15:50 15:50 WBC 13.3 H (4.2-12.2) K/uL RBC (3.80-5.40) M/uL MCV 100.3 H (81-97) fl MCH 34.0 H (27-33) pg Neutrophils % 86.0 H (47-80) % Lymphocytes % 6.2 L (16-45) % Lymphocytes 7.0 L (16-45) % ESR (0-30) mm/hr PT 9.3 L (9.5-12.1) SECONDS Potassium 2.9 L* (3.4-4.5) mmol/L Chloride (98-107) mmol/L Carbon Dioxide 16.0 L (22-29) mmol/L Anion Gap 21.0 H (7-16) Random Glucose 131 H (74-109) mg/dL C-Reactive Protein (<0.5) mg/dL TSH 5.59 H (0.270-4.20) uIU/mL 02/24/19 02/24/19 02/25/19 Range/Units 15:50 15:50 06:26 WBC (4.2-12.2) K/uL RBC 3.77 L (3.80-5.40) M/uL MCV 103.4 H (81-97) fl MCH 33.4 H (27-33) pg Neutrophils % (47-80) % Lymphocytes % (16-45) % Lymphocytes 10.0 L (16-45) % ESR 70 H 67 H (0-30) mm/hr PT (9.5-12.1) SECONDS Potassium (3.4-4.5) mmol/L Chloride (98-107) mmol/L Carbon Dioxide (22-29) mmol/L Anion Gap (7-16) Random Glucose (74-109) mg/dL C-Reactive Protein 5.53 H (<0.5) mg/dL TSH (0.270-4.20) uIU/mL 02/25/19 Range/Units 06:26 WBC (4.2-12.2) K/uL RBC (3.80-5.40) M/uL MCV (81-97) fl MCH (27-33) pg Neutrophils % (47-80) % Lymphocytes % (16-45) % Lymphocytes (16-45) % ESR (0-30) mm/hr PT (9.5-12.1) SECONDS Potassium 4.6 H (3.4-4.5) mmol/L Chloride 108 H (98-107) mmol/L Carbon Dioxide 19.0 L (22-29) mmol/L Anion Gap (7-16) Random Glucose 150 H (74-109) mg/dL C-Reactive Protein 4.59 H (<0.5) mg/dL TSH (0.270-4.20) uIU/mL Condition at Discharge: (2) Stable Discharge Medications - Discharge Medications Home Medications: Ambulatory Orders Chlorzoxazone [Parafon Forte Dsc] 500 mg PO TID tab 01/23/17 [Last Taken 02/24/19] Levothyroxine Sodium [Synthroid] 150 mcg PO QD tab 01/23/17 [Last Taken 02/24/19] Duloxetine HCl [Cymbalta] 30 mg PO DAILY 09/15/17 [Last Taken 02/24/19] Gabapentin [Neurontin] 600 mg PO TID 09/15/17 [Last Taken 02/24/19] Eszopiclone [Lunesta] 3 mg PO QHS 02/24/19 [Last Taken Unknown] Methotrexate Sodium [Trexall] 20 mg PO WEEKLY 02/24/19 [Last Taken Unknown] Prednisone 15 mg PO DAILY 02/24/19 [Last Taken Unknown] Folic Acid 0.4 mg PO QID 02/25/19 [Last Taken Unknown] Methylprednisolone Sod Succ/Pf [Solu-Medrol] 60 mg IVP DAILY vial 10/21/19 [Last Taken Unknown] Discharge Plan - Discharge Instructions Activity at Discharge: Increase Activity as Tolerated Diet at Discharge: Regular Diet Additional Instructions: Increase Prednisone to 25mg daily. Resume taking all other medication as prescribed. Follow up with Dr. Valenzuela in 1 week of discharge. Her office will call you to make an appointment. Discuss further concerns with your PCP. Quality Measures - Quality Measures Quality Measures: Documentation of Current Medications in Medical Record, Screening for High Blood Pressure and F/U Documented - Current Medications Quality Measure: Measure #130: Documentation of Current Medications Documentation of Current Medications: <Current Medications Documented/Reviewed> [G8427] - Blood Pressure Screening Quality Measure: Screening for High Blood Pressure and Follow-Up Documented Does Patient Have Any of the Following: No Blood Pressure Classification: Hypertensive Reading Systolic Measurement: 146 Diastolic Measurement: 95 Screening for High Blood Pressure: < First Hypertensive BP, F/U Documented > [G8950] First Hypertensive Follow-up Interventions: Follow-up with rescreen GT 1 day and LT 4 weeks., Lifestyle modifications., Referral to alternative/primary care provider. Lifestyle Modification: Weight Reduction, Dietary Approaches to Stop Hypertension (DASH) Eating Plan, Dietary Sodium Restriction - Elder Abuse Suspicion Index EASI Reference Information: Tigist BENITEZ, Bryn C, Holly D, Johnathan Helms.Development and validation of a tool to assist physicians identification of elder abuse: The Elder Abuse Suspicion Index (EASI ). Journal of Elder Abuse and Neglect, 2008; 20 (3): 276-300.
[2019-02-25] MEDS ORDERED: KETOROLAC 30 MG/ML VIAL IVP ONE (11:31)
== END 2019-02-25 13:00 | disposition home or self-care (01) ==
LOC: ER 15:20 → MEDSURG 18:24
PROVIDERS: ADMIT Internal Medicine; ATTEND Internal Medicine
DX: M06.9 Rheumatoid arthritis, unspecified (principal); R70.0 Elevated erythrocyte sedimentation rate; R05 Cough; E03.9 Hypothyroidism, unspecified; F17.210 Nicotine dependence, cigarettes, uncomplicated; Z23 Encounter for immunization
CPT/HCPCS: 71046; 80048; 80053; 81003; 83880; 84443; 84484; 85027; 85610; 85651; 85730; 86140; 90686; 93005; 93010; 94640; 96374; 96375; 99220; 99285; J1885; J2930; J7030; J7613

== ENCOUNTER 2019-05-23 14:42 | Observation (INO) | payer MEDICARE, BC ==
[2019-05-23] MEDS ORDERED: 0.9 % SODIUM CHLORIDE 1,000 ML BAG IV ONE (15:17)
--- NOTE | 2019-05-23 15:22 | Emergency Department Record ---
History of Present Illness - General Chief complaint: ENT Stated complaint: SORE THROAT Time Seen by Provider: 05/23/19 15:10 Source: Patient Mode of Arrival: Ambulatory Limitations: No limitations - History of Present Illness Initial comments: The patient is here due to having a ST for a few weeks that is worse the last 2 days. She also has had a mild cough but no fever, SOB, CP, SERRATO or AP. She has also felt weak and shakey and possibly dehydrated. The patient denies any new medicines and there has not been any voice changes or drooling. The patient does have a hx of Rheumatoid Arthritis and feels she may be having a flare up of that. MD complaint: Sore throat Onset/Timin -: Days(s) Severity: Moderate Severity scale (1-10): 9 Quality: Aching Associated Symptoms: Cough, Sore throat - Related Data Allergies Allergy/AdvReac Type Severity Reaction Status Date / Time celecoxib [From Celebrex] Allergy Mild hives Verified 05/23/19 15:10 Travel Screening - Travel/Exposure Within Last 30 Days Have you traveled within the last 30 days?: No - Travel/Exposure Within Last Year Have you traveled outside the [place] in the last year?: No - Additonal Travel Details Have you been exposed to anyone with a communicable illness?: No - Travel Symptoms Symptom Screening: None Review of Systems Constitutional: Reports: Malaise. Denies: Chills, Fever Eyes: Denies: Eye discharge ENT: Reports: Throat pain. Denies: Congestion Respiratory: Reports: Cough Cardiovascular: Denies: Arrhythmia Endocrine: Reports: Fatigue Gastrointestinal: Denies: Nausea Genitourinary: Denies: Dysuria Musculoskeletal: Denies: Arthralgia Skin: Denies: Bruising Past Medical History - SOCIAL HISTORY Smoking Status: Former smoker Alcohol Use: Occasional Drug Use: None - RESPIRATORY Hx Respiratory Disorders: Yes Hx Bronchitis: Yes - CARDIOVASCULAR Hx Cardio Disorders: No - NEURO Hx Neuro Disorders: No - GI Hx GI Disorders: No - Hx Genitourinary Disorders: No - ENDOCRINE Hx Endocrine Disorders: Yes Hx Diabetes: No Hx Thyroid Disease: Yes - MUSCULOSKELETAL Hx Musculoskeletal Disorders: Yes Hx Arthritis: Yes (RA) - PSYCH Hx Psych Problems: No - HEMATOLOGY/ONCOLOGY Hx Hematology/Oncology Disorders: No Family Medical History Any Significant Family History?: Yes Physical Exam - General General Appearance: Alert, Oriented x3, Cooperative, No acute distress - Head Head exam: Atraumatic, Normocephalic - Eye Eye exam: Normal appearance, PERRL - ENT Throat exam: Tonsillar erythema. negative: Normal inspection, Tonsillomegaly, Tonsillar exudate - Neck Neck exam: Normal inspection, Full ROM. negative: Lymphadenopathy, Meningismus (The neck is very supple.), Tenderness - Respiratory Respiratory exam: Normal lung sounds bilaterally. negative: Respiratory distress - Cardiovascular Cardiovascular Exam: Regular rate, Normal rhythm, Normal heart sounds - GI/Abdominal GI/Abdominal exam: Soft, Normal bowel sounds. negative: Tenderness - Extremities Extremities exam: Normal inspection, Full ROM, Normal capillary refill. negative: Tenderness - Neurological Neurological exam: Alert. negative: Motor sensory deficit - Psychiatric Psychiatric exam: negative: Anxious - Skin Skin exam: Erythema (There is a diffuse facial erythroderma which the patient states is typical for her arthritis flare ups.), Rash Distribution of rash: Face Course Vital Signs 05/23/19 15:03 Temperature 97.6 F Pulse Rate 82 Respiratory 16 Rate Blood Pressure 167/105 Pulse Ox 99 - Reevaluation(s) Reevaluation #1: The patient is resting comfortably at this time and still feels very weak. I did discuss the lab issues with the patient that indicate she is significantly dehydrated. Due to that I do feel the best course of action is to treat the patient with IVF's overnight and recheck her lab work in the AM. I did discuss the case with Dr. Wang and he does accept the admission and agree with the plan. 05/23/19 16:56 Medical Decision Making - Data Complexity MDM Data: Labs Ordered and/or Reviewed, X-Ray Ordered and/or Reviewed - Lab Data Result diagrams: 05/23/19 15:26 05/23/19 15:26 - Radiology Data Radiology results: Report reviewed (CXR and Soft tissue neck: neg for any acute changes.) Disposition Disposition: Admit Clinical Impression: Rheumatoid arthritis flare Disposition: Still a Patient at [facility] Decision to Admit: Admit from ER Decision to Admit Date: 05/23/19 Decision to Admit Time: 16:59 Accepting Physician: Kathleen Time Discussed w/Accepting Physician: 16:59 Condition: (2) Stable Time of Disposition: 16:59 Quality - Quality Measures Quality Measures: N/A - Blood Pressure Screening View Details: Yes Does Patient Have Any of the Following: Active Dx of HTN Blood Pressure Classification: Hypertensive Reading Systolic Measurement: 167 Diastolic Measurement: 105 Screening for High Blood Pressure: Patient Exclusion, Hx of HTN [G9744]
[2019-05-23 15:32] LABS: ABSOLUTE NEUTROPHIL COUNT 6.16; BASO % 0.9 % (0-6); GRAN % 77.7 % (47-80); HEMATOCRIT 40.9 % (35.0-47.0); HEMOGLOBIN 13.6 gm/dl (11.6-16.0); LYMPH % 13.5 % (16-45); MEAN CELL VOLUME 105.1 fl (81-97); MEAN CORPUSCULAR HGB CONC 33.3 g/dl (32-36); MEAN PLATELET VOLUME 8.4 fl (7.4-10.4); MONO % 7.9 % (0-9); PLATELET COUNT 321 K/uL (130-400); RED BLOOD COUNT 3.89 M/uL (3.80-5.40); RED CELL DISTRIBUTION WIDTH 14.8 % (11.5-14.5); WHITE BLOOD COUNT W/O DIFF 7.9 K/uL (4.2-12.2)
[2019-05-23 15:57] LABS: BLOOD UREA NITROGEN 14 mg/dL (8-23); CREATININE 0.6 mg/dL (0.5-0.9); EST GLOMERULAR FILTRATION RATE > 60 mL/min; TOTAL PROTEIN 7.6 g/dL (6.6-8.7)
[2019-05-23 15:59] LABS: GLUCOSE,RANDOM 64 mg/dL (74-109)
[2019-05-23 16:02] LABS: ALB/GLOB RATIO 1.6 (1.1-1.8); ALBUMIN 4.7 g/dL (4.0-5.0); ALKALINE PHOSPHATASE 93 U/L (35-104); ALT/SGPT 27 U/L (<33); AST/SGOT 51 U/L (10.0-35.0); C-REACTIVE PROTEIN 0.12 mg/dL (<0.5)
[2019-05-23 16:12] LABS: THYROID STIMULATING HORMONE 8.49 uIU/mL (0.270-4.20)
[2019-05-23] MEDS: DEXTROSE 5 % AND 0.9 % NACL 1,000 ML IV PRN (16:14)
[2019-05-23 16:15] LABS: ERYTHROCYTE SEDIMENTATION RATE 12 mm/hr (0-30)
--- NOTE | 2019-05-23 16:23 | RADIOLOGY REPORT ---
EXAMINATION: Soft Tissue Neck EXAM DATE: 05/23/2019 4:06 PM INDICATION: cough ENCOUNTER: Initial FINDINGS: The soft tissues in and around the oropharynx, hypopharynx, larynx, and upper trachea are unremarkabl e. Spine degenerative change. Impression: Normal neck soft tissues. Dictated by: Vladimir Humphrey MD on 05/23/2019 4:20 PM. .
--- NOTE | 2019-05-23 16:23 | RADIOLOGY REPORT ---
EXAMINATION: Two View Chest Radiographs EXAM DATE: 05/23/2019 4:06 PM TECHNIQUE: Frontal and lateral views INDICATION: cough COMPARISON: February 24, 2019 ENCOUNTER: Not applicable FINDINGS: The heart, mediastinum, and pulmonary vasculature are stable lung morgan are hyperexpanded. Coarse in terstitial lung markings diffusely. No lung consolidation or pleural effusions are present. IMPRESSION: Negative for active intrathoracic disease Dictated by: Nicholas Luke MD on 05/23/2019 4:20 PM. .
[2019-05-23] MEDS ORDERED: METHYLPREDNISOLONE PF 125MG/VIAL IVP ONE (16:53)
[2019-05-23] MEDS ORDERED: ACETAMINOPHEN 1,000 MG/100 ML BTL IVPB ONE (17:13)
[2019-05-23 17:22] LABS: URINE APPEARANCE CLEAR; URINE BILIRUBIN NEGATIVE (NEGATIVE); URINE BLOOD TRACE-I (NEGATIVE); URINE COLOR YELLOW; URINE GLUCOSE (UA) NEGATIVE (NEGATIVE); URINE KETONE 40 mg/dL (NEGATIVE); URINE LEUKOCYTE ESTERASE NEGATIVE (NEGATIVE); URINE NITRITE NEGATIVE (NEGATIVE); URINE PROTEIN NEGATIVE (NEGATIVE); URINE UROBILINOGEN 0.2 E.U./dL (0.20 - 1.00)
[2019-05-23 17:31] LABS: URINE WBC 0 - 2 (0-2/hpf)
[2019-05-23] MEDS ORDERED: ACETAMINOPHEN 325 MG TAB PO PRN (18:24)
[2019-05-23] MEDS ORDERED: BENZONATATE 100 MG CAPSULE PO PRN (18:24)
[2019-05-23] MEDS: 0.9 % SODIUM CHLORIDE 1000ML 1,000 ML IV ONE ×2 (18:49→21:15)
[2019-05-23] MEDS: ACETAMINOPHEN 1,000 MG/100 ML BTL IVPB SCH (18:51)
[2019-05-23] MEDS ORDERED: ALPRAZOLAM 0.25 MG TABLET PO ONE (19:17)
[2019-05-23] MEDS ORDERED: KETOROLAC 30 MG/ML VIAL IVP ONE (19:17)
--- NOTE | 2019-05-23 20:57 | History & Physical ---
History of Present Illness - Date of Service Date of Service for History & Physical: 05/24/19 - History of Present Illness Admitting Diagnosis: 1. Acute Dehydration with RA Flare up. History of Present Illness: Mrs. Castellanos is a 64 y/o female with history of rheumatoid arthritis who presents with vague symptoms. The patient sates that her throat hurt and that she felt 'really crumy' over the last week. She is on Prednisone 15mg daily for her RA and Methotrexate weekly. She was previously on Enbrel but has not been for several months the reason for this is unknown. The patient's ED course included chest xray which was normal, labs significant for hypoglycemia and hypothyrodism. Xrays of multiple joints; including hands, feet and soft tissues of the neck showed osteoarthritic changes which are old but no new findings were observed. The patient is admitted to the [facility] for IV steroid therapy and IV fluids. PCP: Dr. Jaime Travel Screening - Travel/Exposure Within Last 30 Days Have you traveled within the last 30 days?: No - Travel/Exposure Within Last Year Have you traveled outside the [place] in the last year?: No - Additonal Travel Details Have you been exposed to anyone with a communicable illness?: No - Travel Symptoms Symptom Screening: Headache, Joint & Muscle Aches, Weakness, Fatigue, Lack of Appetite, Chills Review of Systems Constitutional: Reports: Malaise. Denies: Chills, Fever Eyes: Denies: Eye discharge ENT: Reports: Throat pain. Denies: Congestion Respiratory: Reports: Cough Cardiovascular: Denies: Arrhythmia Endocrine: Reports: Fatigue Gastrointestinal: Denies: Nausea Genitourinary: Denies: Dysuria Musculoskeletal: Denies: Arthralgia Skin: Denies: Bruising Past Medical History - SOCIAL HISTORY Smoking Status: Former smoker Alcohol Use: Occasional Drug Use Detail:: Marijuana - RESPIRATORY Hx Respiratory Disorders: Yes Hx Bronchitis: Yes - CARDIOVASCULAR Hx Cardio Disorders: No - NEURO Hx Neuro Disorders: No - GI Hx GI Disorders: No - Hx Genitourinary Disorders: No - ENDOCRINE Hx Endocrine Disorders: Yes Hx Diabetes: No Hx Thyroid Disease: Yes - MUSCULOSKELETAL Hx Musculoskeletal Disorders: Yes Hx Arthritis: Yes (RA) - PSYCH Hx Psych Problems: No - HEMATOLOGY/ONCOLOGY Hx Hematology/Oncology Disorders: No Family Medical History Any Significant Family History?: Yes Hx Anxiety: Brother/Sister *Depression Comment: self H&P Meds/Allergies - Allergies Allergies: Allergies Allergy/AdvReac Type Severity Reaction Status Date / Time celecoxib [From Celebrex] Allergy Mild hives Verified 05/23/19 15:10 - Active Medications Active Medications: Current Medications Acetaminophen (Tylenol 325mg) 650 mg PO Q6H PRN PRN Reason: PAIN - MILD(1-4)/FEVER Albuterol Sulfate (Ventolin Hfa) 1 - 2 puff INH Q4-6HR CHAD Benzonatate (Tessalon) 100 mg PO TID PRN PRN Reason: COUGH Chlorzoxazone (Parafon Forte) 500 mg PO TID [facility]AD Duloxetine HCl (Cymbalta) 30 mg PO DAILY [facility] Gabapentin (Neurontin) 600 mg PO TID [facility] Dextrose/Sodium Chloride () 1,000 mls @ 250 mls/hr IV .Q4H PRN PRN Reason: LARGE VOLUME IV Last Admin: 05/23/19 16:14 Dose: 250 mls/hr Documented by: Sodium Chloride () 1,000 mls @ 125 mls/hr IV .Q8H ONE Stop: 05/24/19 02:23 Last Admin: 05/23/19 18:49 Dose: Not Given Documented by: Acetaminophen (Ofirmev) 1,000 mg in 100 mls @ 400 mls/hr IVPB Q6H CHAD Last Admin: 05/23/19 18:51 Dose: Not Given Documented by: Levothyroxine Sodium (Synthroid) 150 mcg PO DAILYTHY [facility] Methylprednisolone Sodium Succinate (Solu-Medrol) 60 mg IVP DAILY [facility] Non-Formulary Medication (Methotrexate Sodium [Trexall]) 20 mg PO WEEKLY [facility] Zolpidem Tartrate (Ambien) 5 mg PO QHS [facility] Physical Exam - Vital Signs Vital Signs: Vital Signs - Last 24 Hrs Temp Pulse Pulse Resp BP BP Pulse Ox 05/23/19 19:08 91 H 20 05/23/19 18:24 97.8 F 91 H 20 184/94 100 05/23/19 17:02 92 H 18 164/108 100 05/23/19 15:03 97.6 F 82 16 167/105 99 - General General Appearance: Alert, Oriented x3, Cooperative, No acute distress Limitations: No limitations - Head Head exam: Atraumatic, Normocephalic - Eye Eye exam: Normal appearance, PERRL - ENT Throat exam: Tonsillar erythema. negative: Normal inspection, Tonsillomegaly, Tonsillar exudate - Neck Neck exam: Normal inspection, Full ROM. negative: Lymphadenopathy, Meningismus (The neck is very supple.), Tenderness - Respiratory Respiratory exam: Normal lung sounds bilaterally. negative: Respiratory distress - Cardiovascular Cardiovascular Exam: Regular rate, Normal rhythm, Normal heart sounds - GI/Abdominal GI/Abdominal exam: Soft, Normal bowel sounds. negative: Tenderness - Extremities Extremities exam: Normal inspection, Full ROM, Normal capillary refill. negative: Tenderness - Neurological Neurological exam: Alert. negative: Motor sensory deficit - Psychiatric Psychiatric exam: negative: Anxious - Skin Skin exam: Erythema (There is a diffuse facial erythroderma which the patient states is typical for her arthritis flare ups.), Rash Distribution of rash: Face Results - Labs Result Diagrams: 05/24/19 06:23 05/24/19 06:23 Labs Last 24 Hours: Laboratory Results - last 24 hr 05/23/19 05/23/19 05/23/19 15:26 15:26 15:26 WBC 7.9 RBC 3.89 Hgb 13.6 Hct 40.9 MCV 105.1 H MCH 35.0 H MCHC 33.3 RDW 14.8 H Plt Count 321 MPV 8.4 Gran % 77.7 Lymphocytes % 13.5 L Monocytes % 7.9 Eosinophils % 0.0 Basophils % 0.9 Absolute Neutrophils 6.16 ESR 12 Sodium 134 L Potassium 3.7 Chloride 92 L Carbon Dioxide 15.0 L Anion Gap 27.0 H BUN 14 Creatinine 0.6 Estimated GFR > 60 Random Glucose 64 L Calcium 9.2 Total Bilirubin 0.60 AST 51 H ALT 27 Alkaline Phosphatase 93 C-Reactive Protein 0.12 Total Protein 7.6 Albumin 4.7 Globulin 2.9 Albumin/Globulin Ratio 1.6 TSH 8.49 H Urine Color Urine Appearance Urine pH Ur Specific [place] Urine Protein Urine Glucose (UA) Urine Ketones Urine Blood Urine Nitrite Urine Bilirubin Urine Urobilinogen Ur Leukocyte Esterase Urine RBC Urine WBC Group A Strep Screen Negative 05/23/19 16:09 WBC RBC Hgb Hct MCV MCH MCHC RDW Plt Count MPV Gran % Lymphocytes % Monocytes % Eosinophils % Basophils % Absolute Neutrophils ESR Sodium Potassium Chloride Carbon Dioxide Anion Gap BUN Creatinine Estimated GFR Random Glucose Calcium Total Bilirubin AST ALT Alkaline Phosphatase C-Reactive Protein Total Protein Albumin Globulin Albumin/Globulin Ratio TSH Urine Color Yellow Urine Appearance Clear Urine pH 6.0 Ur Specific [place] 1.020 Urine Protein Negative Urine Glucose (UA) Negative Urine Ketones 40 mg/dl H Urine Blood Trace-i Urine Nitrite Negative Urine Bilirubin Negative Urine Urobilinogen 0.2 Ur Leukocyte Esterase Negative Urine RBC 3 - 6 Urine WBC 0 - 2 Group A Strep Screen VTE H&P Assessment - Risk for VTE Risk for VTE: Yes Risk Level: High Risk Assessment Date: 05/24/19 Risk Assessment Time: 10:49 VTE Orders Placed or Will Be Placed: Yes Plan - Detailed Diagnosis and Plan (1) Rheumatoid arthritis flare Current Visit: Yes Status: Acute Base Code: M06.9 - RHEUMATOID ARTHRITIS, UNSPECIFIED Comment: 05/24/19: - Hx of RA with recent change from Humira to Enbrel. - IVF fluids d/c 5% dextrose 250 and start 0.9 Nacl @ 125mL/hr and IV Solumedrol 125mg in ED. - No indication of systemic infection or metabolic disturbance. CXR, UA negative for infection. (2) HTN (hypertension) Current Visit: Yes Status: Acute Base Code: I10 - ESSENTIAL (PRIMARY) HYPERTENSION Comment: 05/24/19: - No previous hx of HTN. - Will trend and start Norvasc 5mg daily. - Outpatient follow with PCP in 1 week. (3) Frequent headaches Current Visit: Yes Status: Acute Base Code: R51 - HEADACHE Comment: 05/24/19: - Acetaminophen 1000mg Q6H IVP PRN - Toradol 15mg IVP x 1 (4) Hypothyroid Current Visit: Yes Status: Acute Base Code: E03.9 - HYPOTHYROIDISM, UNSPECIFIED Comment: 05/24/19: - TSH 8.4, possibly 2/2 to acute illness. - Continue Levothyroxine 150mcg daily. - Recheck TSH in 2 weeks post-discharge with PCP. (5) DVT prophylaxis Current Visit: No Status: Acute Base Code: Z29.9 - ENCOUNTER FOR PROPHYLACTIC MEASURES, UNSPECIFIED Comment: 05/24/19: - Lovenox 40mg sc qd (6) Full code status Current Visit: No Status: Acute Base Code: Z78.9 - OTHER SPECIFIED HEALTH STATUS Comment: 05/24/19: - Full code status on this admission.
[2019-05-23] MEDS: GABAPENTIN 300 MG CAPSULE PO SCH (21:16)
[2019-05-23] MEDS: CHLORZOXAZONE 500 MG TABLET PO SCH (21:16)
[2019-05-23] MEDS ORDERED: ZOLPIDEM TARTRATE 5 MG TABLET PO SCH (22:00)
[2019-05-23] MEDS: ALBUTEROL HFA 8 GM INHALER INH SCH (22:12)
[2019-05-24] MEDS: ACETAMINOPHEN 1,000 MG/100 ML BTL IVPB SCH ×2 (03:45→06:02)
[2019-05-24] MEDS: ALBUTEROL HFA 8 GM INHALER INH SCH (05:57)
[2019-05-24] MEDS: DEXTROSE 5 % AND 0.9 % NACL 1,000 ML IV PRN (06:09)
[2019-05-24 06:33] LABS: ABSOLUTE NEUTROPHIL COUNT 3.35; GRAN % 77.5 % (47-80); HEMATOCRIT 39.2 % (35.0-47.0); HEMOGLOBIN 13.6 gm/dl (11.6-16.0); LYMPH % 12.5 % (16-45); MEAN CELL VOLUME 102.6 fl (81-97); MEAN CORPUSCULAR HEMOGLOBIN 35.6 pg (27-33); MEAN CORPUSCULAR HGB CONC 34.7 g/dl (32-36); MEAN PLATELET VOLUME 8.4 fl (7.4-10.4); PLATELET COUNT 359 K/uL (130-400); RED BLOOD COUNT 3.82 M/uL (3.80-5.40); WHITE BLOOD COUNT W/O DIFF 4.3 K/uL (4.2-12.2)
[2019-05-24] MEDS ORDERED: LEVOTHYROXINE SODIUM 150 MCG TABLET PO SCH (07:00)
[2019-05-24 07:03] LABS: BLOOD UREA NITROGEN 14 mg/dL (8-23); CREATININE 0.7 mg/dL (0.5-0.9); EST GLOMERULAR FILTRATION RATE > 60 mL/min; GLUCOSE,RANDOM 143 mg/dL (74-109)
[2019-05-24] MEDS ORDERED: ALBUTEROL HFA 8 GM INHALER INH PRN (09:30)
[2019-05-24] MEDS ORDERED: ACETAMINOPHEN 1,000 MG/100 ML BTL IVPB PRN (09:30)
[2019-05-24] MEDS ORDERED: AMLODIPINE BESYLATE 5MG TAB PO ONE (09:45)
[2019-05-24] MEDS ORDERED: KETOROLAC 30 MG/ML VIAL IVP ONE (09:46)
[2019-05-24] MEDS ORDERED: DULOXETINE HCL 30 MG CAPSULE.DR PO SCH (10:00)
[2019-05-24] MEDS ORDERED: METHYLPREDNISOLONE PF 125MG/VIAL IVP SCH (10:00)
[2019-05-24] MEDS ORDERED: 0.9 % SODIUM CHLORIDE 1,000 ML BAG IV SCH (10:00)
[2019-05-24] MEDS ORDERED: 0.9 % SODIUM CHLORIDE 1000ML 1,000 ML IV SCH (10:15)
[2019-05-24] MEDS: CHLORZOXAZONE 500 MG TABLET PO SCH (10:39)
[2019-05-24] MEDS: GABAPENTIN 300 MG CAPSULE PO SCH (10:39)
[2019-05-24] MEDS ORDERED: ENOXAPARIN 40 MG/0.4 ML SYR SQ SCH (11:00)
--- NOTE | 2019-05-24 13:49 | Discharge Summary ---
Providers Discharge Summary Date: 05/24/19 Date of admission: 05/23/19 17:31 Attending physician: LIYAH PIKE Primary care physician: REINALDO BAUMANN III, D.O. Physical Exam - Vital Signs Vital Signs: Vital Signs - Last 24 Hrs Temp Pulse Pulse Resp BP BP Pulse Ox 05/24/19 12:06 98.7 F 171/91 05/24/19 09:00 95 H 16 05/24/19 07:18 98.7 F 95 H 16 171/91 97 05/24/19 06:00 98.0 F 96 H 22 158/102 99 05/24/19 05:57 94 H 20 99 05/23/19 22:12 88 18 05/23/19 21:00 18 05/23/19 20:24 98.2 F 97 H 18 155/94 97 05/23/19 19:08 91 H 20 05/23/19 18:24 97.8 F 91 H 20 184/94 100 05/23/19 17:02 92 H 18 164/108 100 05/23/19 15:03 97.6 F 82 16 167/105 99 - General General Appearance: Alert, Oriented x3, Cooperative, No acute distress Limitations: No limitations - Head Head exam: Atraumatic, Normocephalic - Eye Eye exam: Normal appearance, PERRL - ENT Throat exam: Tonsillar erythema. negative: Normal inspection, Tonsillomegaly, Tonsillar exudate - Neck Neck exam: Normal inspection, Full ROM. negative: Lymphadenopathy, Meningismus (The neck is very supple.), Tenderness - Respiratory Respiratory exam: Normal lung sounds bilaterally. negative: Respiratory distress - Cardiovascular Cardiovascular Exam: Regular rate, Normal rhythm, Normal heart sounds - GI/Abdominal GI/Abdominal exam: Soft, Normal bowel sounds. negative: Tenderness - Extremities Extremities exam: Normal inspection, Full ROM, Normal capillary refill. negative: Tenderness - Neurological Neurological exam: Alert. negative: Motor sensory deficit - Psychiatric Psychiatric exam: negative: Anxious - Skin Skin exam: Erythema (There is a diffuse facial erythroderma which the patient states is typical for her arthritis flare ups.), Rash Distribution of rash: Face Hospitalization - Hospitalization Admission Diagnosis: 1. Acute Dehydration with RA Flare up. - Problem List/Discharge Diagnosis (1) Rheumatoid arthritis flare Current Visit: Yes Status: Acute Base Code: M06.9 - RHEUMATOID ARTHRITIS, UNSPECIFIED Comment: 05/24/19: - Hx of RA with recent change from Humira to Enbrel. - IVF fluids d/c 5% dextrose 250 and start 0.9 Nacl @ 125mL/hr and IV Solumedrol 125mg in ED. - No indication of systemic infection or metabolic disturbance. CXR, UA negative for infection. (2) HTN (hypertension) Current Visit: Yes Status: Acute Base Code: I10 - ESSENTIAL (PRIMARY) HYPERTENSION Comment: 05/24/19: - No previous hx of HTN. - Will trend and start Norvasc 5mg daily. - Outpatient follow with PCP in 1 week. (3) Frequent headaches Current Visit: Yes Status: Acute Base Code: R51 - HEADACHE Comment: 05/24/19: - Acetaminophen 1000mg Q6H IVP PRN - Toradol 15mg IVP x 1 (4) Hypothyroid Current Visit: Yes Status: Acute Base Code: E03.9 - HYPOTHYROIDISM, UNSPECIFIED Comment: 05/24/19: - TSH 8.4, possibly 2/2 to acute illness. - Continue Levothyroxine 150mcg daily. - Recheck TSH in 2 weeks post-discharge with PCP. (5) DVT prophylaxis Current Visit: No Status: Acute Base Code: Z29.9 - ENCOUNTER FOR PROPHYLACTIC MEASURES, UNSPECIFIED Comment: 05/24/19: - Lovenox 40mg sc qd (6) Full code status Current Visit: No Status: Acute Base Code: Z78.9 - OTHER SPECIFIED HEALTH STATUS Comment: 05/24/19: - Full code status on this admission. - Hospitalization Course Procedures: Imaging and X-Rays 05/23/19 15:18 CHEST 2 VIEWS [RAD] Stat NECK, SOFT TISSUE [RAD] Stat Abnormal Labs: Abnormal Lab Results 05/23/19 05/23/19 05/23/19 Range/Units 15:26 15:26 16:09 MCV 105.1 H (81-97) fl MCH 35.0 H (27-33) pg RDW 14.8 H (11.5-14.5) % Lymphocytes % 13.5 L (16-45) % Monocytes % (0-9) % Sodium 134 L (136-145) mmol/L Chloride 92 L (98-107) mmol/L Carbon Dioxide 15.0 L (22-29) mmol/L Anion Gap 27.0 H (7-16) Random Glucose 64 L (74-109) mg/dL AST 51 H (10.0-35.0) U/L TSH 8.49 H (0.270-4.20) uIU/mL Urine Ketones 40 mg/dl H (NEGATIVE) 05/24/19 05/24/19 Range/Units 06:23 06:23 MCV 102.6 H (81-97) fl MCH 35.6 H (27-33) pg RDW 15.0 H (11.5-14.5) % Lymphocytes % 12.5 L (16-45) % Monocytes % 10.0 H (0-9) % Sodium 135 L (136-145) mmol/L Chloride (98-107) mmol/L Carbon Dioxide 20.0 L (22-29) mmol/L Anion Gap 17.0 H (7-16) Random Glucose 143 H (74-109) mg/dL AST (10.0-35.0) U/L TSH (0.270-4.20) uIU/mL Urine Ketones (NEGATIVE) Condition at Discharge: (2) Stable Discharge Medications - Discharge Medications Home Medications: Ambulatory Orders Chlorzoxazone [Parafon Forte Dsc] 500 mg PO TID tab 01/23/17 [Last Taken 1 Day Ago ~05/22/19] Levothyroxine Sodium [Synthroid] 150 mcg PO QD tab 01/23/17 [Last Taken 1 Day Ago ~05/22/19] Duloxetine HCl [Cymbalta] 30 mg PO DAILY 09/15/17 [Last Taken 1 Day Ago ~05/22/19] Gabapentin [Neurontin] 600 mg PO TID 09/15/17 [Last Taken 1 Day Ago ~05/22/19] Eszopiclone [Lunesta] 3 mg PO QHS 02/24/19 [Last Taken 1 Day Ago ~05/22/19] Methotrexate Sodium [Trexall] 20 mg PO WEEKLY 02/24/19 [Last Taken 1 Day Ago ~05/22/19] Prednisone 5 mg PO TID 02/24/19 [Last Taken 1 Day Ago ~05/22/19] Folic Acid 0.4 mg PO QID 02/25/19 [Last Taken 1 Day Ago ~01/15/20] Discharge Plan - Discharge Instructions Additional Instructions: Follow up with your PCP Dr. Baumann in 1 week. Continuetaking your medications as prescribed and call Dr. Valenzuela to discuss Prednisone dose adjustments. Have your TSH rechecked in 1 week. Quality Measures - Quality Measures Quality Measures: Documentation of Current Medications in Medical Record, Screening for High Blood Pressure and F/U Documented - Current Medications Quality Measure: Measure #130: Documentation of Current Medications Documentation of Current Medications: <Current Medications Documented/Reviewed> [G8427] - Blood Pressure Screening Quality Measure: Screening for High Blood Pressure and Follow-Up Documented Does Patient Have Any of the Following: No Blood Pressure Classification: Hypertensive Reading Systolic Measurement: 171 Diastolic Measurement: 91 Screening for High Blood Pressure: < First Hypertensive BP, F/U Documented > [G8950] First Hypertensive Follow-up Interventions: Follow-up with rescreen GT 1 day and LT 4 weeks. - Elder Abuse Suspicion Index EASI Reference Information: Tigist BENITEZ, Bryn C, Holly D, Johnathan Helms.Development and validation of a tool to assist physicians identification of elder abuse: The Elder Abuse Suspicion Index (EASI ). Journal of Elder Abuse and Neglect, 2008; 20 (3): 276-300.
[2019-05-26] MEDS ORDERED: METHOTREXATE SODIUM 20 MG PO SCH (10:00)
== END 2019-05-24 14:51 | disposition home or self-care (01) ==
LOC: ER 14:42 → MEDSURG 17:31
PROVIDERS: ADMIT Internal Medicine; ATTEND Internal Medicine
DX: E86.0 Dehydration (principal); M05.9 Rheumatoid arthritis with rheumatoid factor, unspecified; R53.1 Weakness; R05 Cough; R51 Headache; I10 Essential (primary) hypertension; E03.9 Hypothyroidism, unspecified; Z87.891 Personal history of nicotine dependence; R21 Rash and other nonspecific skin eruption
CPT/HCPCS: 70360; 71046; 80048; 80053; 81001; 84443; 85025; 85651; 86140; 87880; 94640; 96361; 96365; 96375; 99220; 99285; J1650; J1885; J2930; J7030; J7042